=== PATIENT | male | born 1970 | race Caucasian/White ===

== ENCOUNTER 2022-12-18 23:04 | Observation (INO) | payer BC ==
[2022-12-18] MEDS ORDERED: GlucaGen 1 MG IV ONE (23:36)
--- NOTE | 2022-12-18 23:41 | ERPHSYRPT ---
- History of Present Illness Time Seen by Provider: 12/18/22 23:39 Source: patient Exam Limitations: no limitations Patient Subjective Stated Complaint: pt states while eating steak he began having uncomfortable feeling in his throat and is not able to keep anything down after swallowing Triage Nursing Assessment: pt alert and oriented, answers questions approp. pt ambulatory with steady gait noted. respirations nonlabored. pt restless in room, sitting on side of bed, occasional vomiting with small amount of blood. Physician History: Patient is a 52-year-old male presents to our ED for evaluation of food bolus in esophagus. Patient was eating steak when symptoms occurred. Patient has had this issue in the past however he passed it at home. Patient has been trying to vomit the bolus of food up for the past 2 hours. It is not passing through. No trauma. No fever. No chest pain or shortness of breath. No nausea vomiting or diaphoresis. Symptoms are mild to moderate in intensity. No specific worsening or improving factors. Patient voices no other complaints or concerns at this time. Portions of this note were created with voice recognition technology. There may be grammatical, spelling, punctuation or sound alike errors Timing/Duration: today Severity: moderate Modifying Factors: Improves With: nothing Associated Symptoms: denies symptoms Allergies/Adverse Reactions: Penicillins Allergy (Unknown, Verified 12/18/22 23:35) Hx Tetanus, Diphtheria Vaccination/Date Given: No Hx Influenza Vaccination/Date Given: No Hx Pneumococcal Vaccination/Date Given: No Immunizations Up to Date: No Travel Risk - International Travel Have you traveled outside of the country in past 3 weeks: No - Coronavirus Screening Are you exhibiting any of the following symptoms?: No Close contact with a COVID-19 positive Pt in past 14-21 Days: No - Vaccine Status Have you recieved a Covid-19 vaccination: No - Review of Systems Constitutional: No Symptoms, No Fever, No Chills Eyes: No Symptoms Ears, Nose, & Throat: No Symptoms Respiratory: No Symptoms, No Cough, No Dyspnea Cardiac: No Symptoms, No Chest Pain, No Edema, No Syncope Abdominal/Gastrointestinal: No Symptoms, No Abdominal Pain, No Nausea, No Vomiting, No Diarrhea Genitourinary Symptoms: No Symptoms, No Dysuria Musculoskeletal: No Symptoms, No Back Pain, No Neck Pain Skin: No Symptoms, No Rash Neurological: No Symptoms, No Dizziness, No Focal Weakness, No Sensory Changes Psychological: No Symptoms, Hallucinations Endocrine: No Symptoms Hematologic/Lymphatic: No Symptoms Immunological/Allergic: No Symptoms All Other Systems: Reviewed and Negative - Past Medical History Pertinent Past Medical History: Yes Cardiac History: Coronary Artery Disease, Myocardial Infarction ([place]) - Past Surgical History Past Surgical History: Yes Cardiac: Cardiac Stent Gastrointestinal: Appendectomy Other Surgical History: 1 cardiac stent - Social History Smoking Status: Former smoker Exposure to second hand smoke: No Drug Use: none Patient Lives Alone: No - Nursing Vital Signs Nursing Vital Signs: Initial Vital Signs Pulse Rate 106 H 12/18/22 23:15 Respiratory Rate 18 12/18/22 23:15 Blood Pressure 118/85 12/18/22 23:15 O2 Sat by Pulse Oximetry 97 12/18/22 23:15 Pain Scale Pain Intensity 8 - Physical Exam General Appearance: no apparent distress, alert Eye Exam: PERRL/EOMI, eyes nml inspection Ears, Nose, Throat Exam: normal ENT inspection, TMs normal, pharynx normal, moist mucous membranes Neck Exam: normal inspection, non-tender, supple, full range of motion Respiratory Exam: normal breath sounds, lungs clear, No respiratory distress Cardiovascular Exam: regular rate/rhythm, normal heart sounds, normal peripheral pulses Gastrointestinal/Abdomen Exam: soft, normal bowel sounds, No tenderness, No mass Back Exam: normal inspection, normal range of motion, No CVA tenderness, No vertebral tenderness Extremity Exam: normal inspection, normal range of motion, pelvis stable Neurologic Exam: alert, oriented x 3, cooperative, normal mood/affect, nml cerebellar function, nml station & gait, sensation nml, No motor deficits Skin Exam: normal color, warm, dry, No rash Lymphatic Exam: No adenopathy SpO2 Interpretation: normal SpO2: 97 O2 Delivery: Room Air - Course Nursing assessment & vital signs reviewed: Yes - CT Exams Chest CT Interpretation: Tele-radiologist Report (Food bolus impaction, left lower lobe lung nodule requiring CT follow-up in 12 months, right renal cyst) Ordered Tests: Active Orders 24 hr Category Date Time Status CHEST WITHOUT CONTRAST [CT] Stat Exams 12/19/22 02:22 Completed CBC W DIFF Stat Lab 12/19/22 01:46 Completed CMP Stat Lab 12/19/22 01:46 Completed TROPONIN Q4H Lab 12/19/22 01:58 Completed TROPONIN Q4H Lab 12/19/22 05:45 Ordered TROPONIN Q4H Lab 12/19/22 09:45 Ordered Transfer Order Routine Transfer 12/19/22 Ordered Medication Summary Generic Name Dose Route Start Last Admin Trade Name Teofilo PRN Reason Stop Dose Admin Sodium Chloride 1,000 mls @ 100 mls/hr 12/19/22 01:15 12/19/22 01:23 Sodium Chloride 0.9% 1000 Ml IV 01/18/23 01:14 100 mls/hr .Q10H ROCÍO Administration Discontinued Medications Generic Name Dose Route Start Last Admin Trade Name Teofilo PRN Reason Stop Dose Admin Glucagon 1 mg 12/18/22 23:36 12/19/22 00:10 Glucagon 1 Mg/Vial Vial IV 12/18/22 23:37 1 mg STAT ONE Administration Glucagon Confirm 12/19/22 00:07 Glucagon 1 Mg/Vial Vial Administered 12/19/22 00:08 Dose 1 mg .ROUTE .STK-MED ONE Hydromorphone HCl 0.5 mg 12/19/22 02:26 12/19/22 02:34 Hydromorphone 1 Mg/1ml Inj IV 12/19/22 02:27 0.5 mg STAT ONE Administration Hydromorphone HCl Confirm 12/19/22 02:32 Hydromorphone 1 Mg/1ml Inj Administered 12/19/22 02:33 Dose 1 mg .ROUTE .STK-MED ONE Morphine Sulfate 2 mg 12/19/22 01:38 12/19/22 01:46 Morphine Sulfate 2 Mg/Ml Inj IV 12/19/22 01:39 2 mg STAT ONE Administration Morphine Sulfate Confirm 12/19/22 01:43 Morphine Sulfate 2 Mg/Ml Inj Administered 12/19/22 01:44 Dose 2 mg .ROUTE .STK-MED ONE Ondansetron HCl 4 mg 12/19/22 01:15 12/19/22 01:23 Ondansetron Hcl 4 Mg/2 Ml Vial IV 12/19/22 01:16 4 mg STAT ONE Administration Ondansetron HCl Confirm 12/19/22 01:20 Ondansetron Hcl 4 Mg/2 Ml Vial Administered 12/19/22 01:21 Dose 4 mg .ROUTE .STK-MED ONE Sterile Water Confirm 12/19/22 00:08 Water For Injection,Sterile 10 Ml Vial Administered 12/19/22 00:09 Dose 10 ml IJ .STK-MED ONE Lab/Rad Data: Laboratory Result Diagrams 12/19/22 01:46 12/19/22 01:46 Laboratory Results 12/19/22 12/19/22 12/19/22 Range/Units 01:58 01:46 01:46 WBC 17.9 H (4.0-10.5) x10^3/uL RBC 4.83 (4.1-5.6) x10^6/uL Hgb 15.0 (12.5-18.0) g/dL Hct 45.4 (42-50) % MCV 94.0 (78-100) fL MCH 31.1 (26-32) pg MCHC 33.0 (32-36) g/dL RDW 12.4 (11.5-14.0) % Plt Count 258 (150-450) x10^3/uL MPV 9.4 (7.5-11.0) fL Gran % 85.5 H (36.0-66.0) % Immature Gran % (Auto) 0.6 H (0.00-0.4) % Nucleat RBC Rel Count 0.0 (0.00-0.1) % Eos # (Auto) 0.21 (0-0.5) x10^3/uL Immature Gran # (Auto) 0.11 H (0.00-0.03) x10^3u/L Absolute Lymphs (auto) 1.30 (1.0-4.6) x10^3/uL Absolute Monos (auto) 0.87 (0.0-1.3) x10^3/uL Absolute Nucleated RBC 0.00 (0.00-0.01) x10^3u/L Lymphocytes % 7.3 L (24.0-44.0) % Monocytes % 4.9 (0.0-12.0) % Eosinophils % 1.2 (0.00-5.0) % Basophils % 0.5 (0.0-0.4) % Absolute Granulocytes 15.33 H (1.4-6.9) x10^3/uL Basophils # 0.09 (0-0.4) x10^3/uL Sodium 139 (137-145) mmol/L Potassium 4.2 (3.5-5.1) mmol/L Chloride 104 (98-107) mmol/L Carbon Dioxide 22 (22-30) mmol/L Anion Gap 18.1 H (5-15) MEQ/L BUN 14 (9-20) mg/dL Creatinine 1.05 (0.66-1.25) mg/dL Estimated GFR > 60.0 ML/MIN Glucose 111 H (74-106) mg/dL Calcium 9.1 (8.4-10.2) mg/dL Total Bilirubin 0.90 (0.2-1.3) mg/dL AST 39 (17-59) U/L ALT 40 (0-50) U/L Alkaline Phosphatase 72 (38-126) U/L Troponin I < 0.012 (0.000-0.034) ng/mL Serum Total Protein 7.9 (6.3-8.2) g/dL Albumin 4.7 (3.5-5.0) g/dL - Progress Progress: unchanged Progress Note: 12/19/22 01:[address] Joaquín French at 1:[address] French states he can scope our patient at approximately 9 AM. Patient will be admitted to hospitalist. IV fluids initiated. Zofran administered. Basic labs ordered. 12/19/22 04:[address] Bentley who excepts admission to observation. Family informed of the left lower lobe lung nodule. They understand the patient will require follow-up CT scan at 12 months to further evaluate the lung nodule. Patient is a [age]-year-old male presents to our ED for evaluation of food bolus impaction. While in our ED patient began to experience nausea and dry heaving. Patient started to dry heave blood. Patient currently on a blood thinner. A CT scan was ordered to rule out perforation. CT scan negative for perforation. But it does confirm a food bolus impaction. Incidental lung nodule observed. This lung nodule will require follow-up in 12 months. This was conveyed both the patient and who is at the bedside. This was also conveyed to the admitting hospitalist. Patient also has a right renal cyst. A leukocytosis of 17,000 was observed. It is unclear whether or not this is demargination. But in the face of bleeding presumably from the esophagus we will give patient a dose of prophylactic antibiotic. Physical exam shows a 52-year-old male uncomfortable complaining of a food bolus. Physical exam otherwise negative. Laboratory test include CBC CMP troponin. Troponin negative. Patient will be admitted for upper GI and retrieval of food bolus this morning at [address] Prieto is excepting hospitalist Dr. Joaquín French will be on consultation. Complexity of problem addressed is moderate, acute complicated. No critical care time Complexity of data reviewed and analyzed is extensive. Test ordered reviewed and analyzed. Results discussed both with general surgeon Dr. French and hospitalist. Findings on lab work-up as well as imaging study correlated clinically. Patient's complaint is due to a food bolus however this is complicated by mild hematemesis. Risk of complication and or risk morbidity/mortality patient management is high. Patient received IV controlled medication for pain control requiring monitoring. Patient will require hospitalization for further evaluation and treatment. Vital stable. Plan of care discussed with patient. He agrees to admission to [facility] for further evaluation and treatment. Patient agrees to follow-up with his primary care physician for a repeat CT chest to further evaluate the progression of the observed lung nodule. Portions of this note were created with voice recognition technology. There may be grammatical, spelling, punctuation or sound alike errors 12/19/22 04:19 12/19/22 04:20 Counseled pt/family regarding: diagnosis, need for follow-up - Departure Departure Disposition: Home Clinical Impression: Food bolus impaction, Nodule of left lung, Renal cyst, right Condition: Stable Critical Care Time: No Referrals: SETH JONES Jr., MD [Primary Care Provider] - Follow up/PCP as directed
[2022-12-19] MEDS ORDERED: GlucaGen 1 MG ONE (00:07)
[2022-12-19] MEDS ORDERED: Sterile H2O 10 ml IJ ONE (00:08)
[2022-12-19] MEDS ORDERED: Zofran 4 MG/2 ML VIAL IV ONE ×2 (01:15→04:29)
[2022-12-19] MEDS ORDERED: Sodium Chloride 0.9% 1000 ML 1,000 ML IV SCH ×2 (01:15→06:12)
[2022-12-19] MEDS ORDERED: Zofran 4 MG/2 ML VIAL ONE (01:20)
[2022-12-19] MEDS ORDERED: Sodium Chloride 0.9% 1000 ML 1,000 ML ONE (01:20)
[2022-12-19] MEDS ORDERED: MORPHINE SULFATE 2 MG INJ IV ONE (01:38)
[2022-12-19] MEDS ORDERED: MORPHINE SULFATE 2 MG INJ ONE (01:43)
[2022-12-19 01:51] LABS: Absolute Neutrophil Ct (ANC) 15.33 x10^3/uL (1.4-6.9); BASOPHIL % 0.5 % (0.0-0.4); Basophil (Absolute #) 0.09 x10^3/uL (0-0.4); Eosinophil % 1.2 % (0.00-5.0); Eosinophil (Absolute #) 0.21 x10^3/uL (0-0.5); Hematocrit 45.4 % (42-50); IMMATURE GRAN # 0.11 x10^3u/L (0.00-0.03); IMMATURE GRAN % 0.6 % (0.00-0.4); Lymphocytes % 7.3 % (24.0-44.0); Mean Corpuscular Hemoglobin 31.1 pg (26-32); Mean Platelet Volume 9.4 fL (7.5-11.0); Monocyte (Absolute #) 0.87 x10^3/uL (0.0-1.3); Monocytes % 4.9 % (0.0-12.0); Neutrophil % 85.5 % (36.0-66.0); Platelet Count 258 x10^3/uL (150-450); Red Blood Count 4.83 x10^6/uL (4.1-5.6); Red Cell Distribution Width 12.4 % (11.5-14.0); White Blood Count 17.9 x10^3/uL (4.0-10.5)
[2022-12-19 02:06] LABS: ALBUMIN 4.7 g/dL (3.5-5.0); ALKALINE PHOSPHATASE 72 U/L (38-126); ANION GAP 18.1 MEQ/L (5-15); BLOOD UREA NITROGEN 14 mg/dL (9-20); CHLORIDE 104 mmol/L (98-107); Calcium 9.1 mg/dL (8.4-10.2); Carbon Dioxide 22 mmol/L (22-30); Creatinine 1 1.05 mg/dL (0.66-1.25); EST GLOMERULAR FILTRATION RATE > 60.0 ML/MIN; Glucose 111 mg/dL (74-106); Potassium 4.2 mmol/L (3.5-5.1); SGOT/AST 39 U/L (17-59); SGPT/ALT 40 U/L (0-50); SODIUM 139 mmol/L (137-145); Total Protein 7.9 g/dL (6.3-8.2)
[2022-12-19] MEDS ORDERED: Hydromorphone 1 mg/ml Injection IV ONE ×2 (02:26→04:28)
[2022-12-19] MEDS ORDERED: Hydromorphone 1 mg/ml Injection ONE (02:32)
--- NOTE | 2022-12-19 03:46 | XRAY ---
CLINICAL HISTORY:Bloody emesis; COMPARISON:None; TECHNIQUES:Axial sections of CT chest were obtained without administration of intravenous contrast. Reconstructed coronal and sagittal images were also acquired; FINDINGS: The esophagus is mildly dilated with an air-fluid level within it. No definite evidence of pneumomediastinum. There is a suggestion of food bolus impaction at the distal esophagus. There is apparent mild esophageal wall thickening at the distal esophagus. The wall measures approximately 9 mm in thickness. This may be secondary to under distention, however, the possibility of a lesion cannot be entirely excluded on this unenhanced CT. Further evaluation is advised. A nodule measuring approximately 5.2 mm is identified in the posterior segment of the left lower lobe. No consolidation, pleural effusion or pneumothorax. No significant hilar or axillary lymphadenopathy. Heart is normal in size. No pericardial effusion. No definite evidence of aneurysmal dilatation of the thoracic aorta. Thyroid gland appears unremarkable. No definite chest wall abnormality. Right renal cyst measuring approximately 1.2 x 0.8 cm. Visualized upper abdominal viscera appears grossly unremarkable. Degenerative changes in the visualized spine. IMPRESSION: Mildly dilated esophagus with an air-fluid level, there is a suggestion of food bolus impaction in the distal esophagus. No definite evidence of pneumomediastinum. Apparent mild esophageal wall thickening at the distal esophagus, may be secondary to under-distention, however, the possibility of a lesion cannot be entirely excluded from this unenhanced examination. Further evaluation is advised. Left lower lobe nodule measuring 5.2 mm. According to Fleischner Society guidelines, optional CT at 12 months is recommended based on the patient risk. Electronically Signed by: Mabel Jesus MD. (12/19/2022 02:38:24 GUEST RELATIONS MANAGER)
[2022-12-19] MEDS ORDERED: Levofloxacin 500MG/100ML D5W 500 MG/100 ML BAG IV STA (04:27)
[2022-12-19] MEDS ORDERED: FLAGYL 500 MG IVPB 500 MG/100 ML BAG IV STA (04:28)
--- NOTE | 2022-12-19 05:49 | PCM.HP ---
History of Present Illness - Chief Complaint Chief Complaint: Esophageal food bolus, Hemoptisis History of Present Illness: is a 52 year old male. 52 yo wm with hx of CAD admitted for meat impaction. Pt has had issues with dysphagia in past. He has never had food getting stuck. He has been retching and some mild hemoptysis noted. CT showed clear lung mistry and food stuck in esophagus. Surgery to proceed with EGD this am. - Review of Systems Constitutional: No Symptoms Eyes: No Symptoms Ears, Nose, & Throat: No Symptoms Respiratory: No Symptoms Cardiac: No Symptoms Abdominal/Gastrointestinal: Dysphagia Genitourinary Symptoms: No Symptoms Musculoskeletal: No Symptoms Skin: No Symptoms Neurological: No Symptoms Psychological: No Symptoms Endocrine: No Symptoms Hematologic/Lymphatic: No Symptoms Immunological/Allergic: No Symptoms Medications & Allergies Home Medications: Home Medication List Aspirin EC 81 mg [Ecotrin 81 mg] 81 mg PO DAILY 12/19/22 [History Confirmed 12/19/22] Atorvastatin Calcium [Lipitor] 80 mg PO HS 12/19/22 [History Confirmed 12/19/22] Ezetimibe 10 mg [Zetia 10 MG] 10 mg PO HS 12/19/22 [History Confirmed 12/19/22] Metoprolol Succinate 25 mg Xl* [Toprol-Xl 25MG Tablets] 6.25 mg PO UD 12/19/22 [History Confirmed 12/19/22] Ticagrelor [Brilinta] 60 mg PO BID 12/19/22 [History Confirmed 12/19/22] lisinopriL [Zestril] 2.5 mg PO UD 12/19/22 [History Confirmed 12/19/22] Allergies/Adverse Reactions: Allergies Allergy/AdvReac Type Severity Reaction Status Date / Time Penicillins Allergy Unknown Verified 12/18/22 23:35 - Past Medical History Past Medical History: Yes Neurological History: No Pertinent History ENT History: No Pertinent History Cardiac History: Coronary Artery Disease, High Cholesterol, Hypertension, Myocardial Infarction ([place]) Respiratory History: No Pertinent History Endocrine Medical History: No Pertinent History Musculoskelatal History: Fractures GI Medical History: No Pertinent History History: No Pertinent History Pyscho-Social History: No Pertinent History Male Reproductive Disorders: No Pertinent History - Past Surgical History Past Surgical History: Yes Neuro Surgical History: No Pertinent History Cardiac History: No Pertinent History Respiratory Surgery: No Pertinent History GI Surgical History: Appendectomy Genitourinary Surgical Hx: No Pertinent History Musculskeletal Surgical Hx: No Pertinent History Male Surgical History: No Pertinent History Other Surgical History: 1 cardiac stent - Social History Smoking Status: Former smoker Exposure to second hand smoke: No Alcohol: Daily Drug Use: none - Physical Exam Vital Signs: Vital Signs - 24 hr Temp Pulse Resp BP BP Pulse Ox 12/19/22 05:09 97.5 F 113 H 18 123/68 97 12/19/22 04:29 97 12/19/22 04:00 96/66 91 L 12/19/22 03:00 103/62 93 L 12/19/22 01:30 110/80 96 12/19/22 01:00 118 H 20 116/77 97 12/19/22 00:30 124 H 16 120/85 94 L 12/19/22 00:17 99 H 16 138/71 95 12/19/22 00:16 96 12/19/22 00:06 114 H 18 103/75 94 L 12/18/22 23:15 106 H 18 118/85 97 General Appearance: no apparent distress Neurologic Exam: alert, oriented x 3 Eye Exam: PERRL/EOMI Ears, Nose, Throat Exam: normal ENT inspection Neck Exam: normal inspection Respiratory Exam: normal breath sounds Cardiovascular Exam: regular rate/rhythm, normal heart sounds Gastrointestinal/Abdomen Exam: soft, normal bowel sounds Extremity Exam: normal inspection, normal range of motion Skin Exam: normal color Results - Labs Lab/Micro Results: Lab Results-Last 24 Hours 12/19/22 12/19/22 12/19/22 Range/Units 01:46 01:46 01:58 WBC 17.9 H (4.0-10.5) x10^3/uL RBC 4.83 (4.1-5.6) x10^6/uL Hgb 15.0 (12.5-18.0) g/dL Hct 45.4 (42-50) % MCV 94.0 (78-100) fL MCH 31.1 (26-32) pg MCHC 33.0 (32-36) g/dL RDW 12.4 (11.5-14.0) % Plt Count 258 (150-450) x10^3/uL MPV 9.4 (7.5-11.0) fL Gran % 85.5 H (36.0-66.0) % Immature Gran % (Auto) 0.6 H (0.00-0.4) % Nucleat RBC Rel Count 0.0 (0.00-0.1) % Eos # (Auto) 0.21 (0-0.5) x10^3/uL Immature Gran # (Auto) 0.11 H (0.00-0.03) x10^3u/L Absolute Lymphs (auto) 1.30 (1.0-4.6) x10^3/uL Absolute Monos (auto) 0.87 (0.0-1.3) x10^3/uL Absolute Nucleated RBC 0.00 (0.00-0.01) x10^3u/L Lymphocytes % 7.3 L (24.0-44.0) % Monocytes % 4.9 (0.0-12.0) % Eosinophils % 1.2 (0.00-5.0) % Basophils % 0.5 (0.0-0.4) % Absolute Granulocytes 15.33 H (1.4-6.9) x10^3/uL Basophils # 0.09 (0-0.4) x10^3/uL Sodium 139 (137-145) mmol/L Potassium 4.2 (3.5-5.1) mmol/L Chloride 104 (98-107) mmol/L Carbon Dioxide 22 (22-30) mmol/L Anion Gap 18.1 H (5-15) MEQ/L BUN 14 (9-20) mg/dL Creatinine 1.05 (0.66-1.25) mg/dL Estimated GFR > 60.0 ML/MIN Glucose 111 H (74-106) mg/dL Calcium 9.1 (8.4-10.2) mg/dL Total Bilirubin 0.90 (0.2-1.3) mg/dL AST 39 (17-59) U/L ALT 40 (0-50) U/L Alkaline Phosphatase 72 (38-126) U/L Troponin I < 0.012 (0.000-0.034) ng/mL Serum Total Protein 7.9 (6.3-8.2) g/dL Albumin 4.7 (3.5-5.0) g/dL 07/03/23 Range/Units 04:27 WBC (4.0-10.5) x10^3/uL RBC (4.1-5.6) x10^6/uL Hgb (12.5-18.0) g/dL Hct (42-50) % MCV (78-100) fL MCH (26-32) pg MCHC (32-36) g/dL RDW (11.5-14.0) % Plt Count (150-450) x10^3/uL MPV (7.5-11.0) fL Gran % (36.0-66.0) % Immature Gran % (Auto) (0.00-0.4) % Nucleat RBC Rel Count (0.00-0.1) % Eos # (Auto) (0-0.5) x10^3/uL Immature Gran # (Auto) (0.00-0.03) x10^3u/L Absolute Lymphs (auto) (1.0-4.6) x10^3/uL Absolute Monos (auto) (0.0-1.3) x10^3/uL Absolute Nucleated RBC (0.00-0.01) x10^3u/L Lymphocytes % (24.0-44.0) % Monocytes % (0.0-12.0) % Eosinophils % (0.00-5.0) % Basophils % (0.0-0.4) % Absolute Granulocytes (1.4-6.9) x10^3/uL Basophils # (0-0.4) x10^3/uL Sodium (137-145) mmol/L Potassium (3.5-5.1) mmol/L Chloride (98-107) mmol/L Carbon Dioxide (22-30) mmol/L Anion Gap (5-15) MEQ/L BUN (9-20) mg/dL Creatinine (0.66-1.25) mg/dL Estimated GFR ML/MIN Glucose (74-106) mg/dL Calcium (8.4-10.2) mg/dL Total Bilirubin (0.2-1.3) mg/dL AST (17-59) U/L ALT (0-50) U/L Alkaline Phosphatase (38-126) U/L Troponin I < 0.012 (0.000-0.034) ng/mL Serum Total Protein (6.3-8.2) g/dL Albumin (3.5-5.0) g/dL - Radiology Impressions Radiology Exams & Impressions: Radiology Procedures Category Date Time Status CHEST WITHOUT CONTRAST [CT] Stat Exams 12/19/22 02:22 Completed Assessment/Plan (1) Dysphagia Current Visit: Yes Status: Acute Assessment & Plan: 1. Meat impaction/Dysphagia: Surgery to proceed with EGD later today. 2. CAD: Continue DAPT after procedure 3. Hematemesis: 2/2 wretching and DAPT. Suspect MWT. Apparently 600 cc in total. Check H/H q6. PPI Q12. 4. Pulmonary Nodule : 5 mm. 12 months f/u per rads 5. FEN: NPO 6. PX: Mobile Don Hathaway MD entire encounter done via telemedicine Code(s): R13.10 - DYSPHAGIA, UNSPECIFIED Telemedicine Encounter - Telemedicine Encounter Telemedicine Encounter: The entirety of this encounter was performed via Telemedicine"
[2022-12-19] MEDS ORDERED: Hydromorphone 1 mg/ml Injection IV PRN (06:12)
[2022-12-19 06:41] LABS: Absolute Neutrophil Ct (ANC) 12.43 x10^3/uL (1.4-6.9); BASOPHIL % 0.4 % (0.0-0.4); Basophil (Absolute #) 0.06 x10^3/uL (0-0.4); Eosinophil % 0.4 % (0.00-5.0); Eosinophil (Absolute #) 0.05 x10^3/uL (0-0.5); Hematocrit 40.6 % (42-50); Hemoglobin 13.3 g/dL (12.5-18.0); IMMATURE GRAN # 0.06 x10^3u/L (0.00-0.03); IMMATURE GRAN % 0.4 % (0.00-0.4); Lymphocyte (Absolute #) 0.91 x10^3/uL (1.0-4.6); Lymphocytes % 6.4 % (24.0-44.0); Mean Cell Volume 94.9 fL (78-100); Mean Corpuscular Hemoglobin 31.1 pg (26-32); Mean Corpuscular Hgb Concent. 32.8 g/dL (32-36); Mean Platelet Volume 9.4 fL (7.5-11.0); Monocyte (Absolute #) 0.66 x10^3/uL (0.0-1.3); Monocytes % 4.7 % (0.0-12.0); Neutrophil % 87.7 % (36.0-66.0); Platelet Count 233 x10^3/uL (150-450); Red Blood Count 4.28 x10^6/uL (4.1-5.6); Red Cell Distribution Width 12.5 % (11.5-14.0); White Blood Count 14.2 x10^3/uL (4.0-10.5)
[2022-12-19] MEDS ORDERED: Zofran 4 MG/2 ML VIAL IV PRN (09:17)
[2022-12-19] MEDS ORDERED: PROTONIX 40 MG IV IV SCH ×2 (10:00)
[2022-12-19 11:36] LABS: Absolute Neutrophil Ct (ANC) 10.16 x10^3/uL (1.4-6.9); BASOPHIL % 0.3 % (0.0-0.4); Basophil (Absolute #) 0.03 x10^3/uL (0-0.4); Eosinophil % 0.2 % (0.00-5.0); Eosinophil (Absolute #) 0.02 x10^3/uL (0-0.5); Hematocrit 39.7 % (42-50); Hemoglobin 12.9 g/dL (12.5-18.0); IMMATURE GRAN # 0.06 x10^3u/L (0.00-0.03); IMMATURE GRAN % 0.5 % (0.00-0.4); Lymphocyte (Absolute #) 0.74 x10^3/uL (1.0-4.6); Lymphocytes % 6.3 % (24.0-44.0); Mean Cell Volume 95.4 fL (78-100); Mean Corpuscular Hgb Concent. 32.5 g/dL (32-36); Mean Platelet Volume 9.6 fL (7.5-11.0); Neutrophil % 86.7 % (36.0-66.0); Platelet Count 212 x10^3/uL (150-450); Red Blood Count 4.16 x10^6/uL (4.1-5.6); Red Cell Distribution Width 12.8 % (11.5-14.0); White Blood Count 11.7 x10^3/uL (4.0-10.5)
[2022-12-19 12:03] LABS: BLOOD UREA NITROGEN 19 mg/dL (9-20); CHLORIDE 105 mmol/L (98-107); Calcium 8.5 mg/dL (8.4-10.2); Carbon Dioxide 23 mmol/L (22-30); Creatinine 1 1.09 mg/dL (0.66-1.25); EST GLOMERULAR FILTRATION RATE > 60.0 ML/MIN; Glucose 125 mg/dL (74-106); Potassium 4.3 mmol/L (3.5-5.1); SODIUM 139 mmol/L (137-145); TROPONIN < 0.012 ng/mL (0.000-0.034)
--- NOTE | 2022-12-19 12:32 | CONS ---
CONSULT DATE: 12/19/2022 HISTORY: I was just notified that Dr. Joaquín French had been called on this patient at 1:00 a.m. and it is about 11:15 or so. I just saw the patient. A 52-year-old gentleman who has heart disease and underwent stents. He has had it for three years. He basically was eating steak and felt it get it stuck. He threw up a little bit of blood. A little bit of dysphagia in the past. He denied any recent upper endoscopy. PAST MEDICAL HISTORY: Hyperlipidemia. Heart disease. Hypercholesterolemia. Hypertension. He had myocardial infarction in the past. PAST SURGICAL HISTORY: Appendectomy. Coronary stents. HOME MEDICATIONS: Aspirin, atorvastatin for hyperlipidemia. He had been on Brilinta for history of coronary stents in the past. Ezetimibe, metoprolol, lisinopril. ALLERGIES: PENICILLIN. FAMILY HISTORY: Negative in regards to this problem. SOCIAL HISTORY: Former smoker. REVIEW OF SYSTEMS: He has a little bit of epigastric pain. He was admitted to medical service for question of retained food bolus. Dr. Joaquín French was consulted and I was just notified of the patient. Fourteen systems reviewed pertinent for as noted above. Pertinent that he threw up a little bit of blood which is surprising on the Brilinta. He had a little bit mild epigastric pain. CT chest no evidence of pneumomediastinum at this time, had some wall thickening in distal esophagus. PHYSICAL EXAMINATION: He is afebrile Vital signs stable. GENERAL: No acute distress. HEENT: Sclera nonicteric. EOMI. Oral mucous membranes moist. NECK: No JVD. CHEST: Equal excursion, nonlabored breathing. CVS: Regular rate and rhythm. ABDOMEN: Soft, minimal tenderness epigastrium. No peritoneal signs. EXTREMITIES: No cyanosis. NEURO: Alert, moving extremities grossly symmetrically. PSYCH: Appropriate mood and affect. SKIN: Dry. IMPRESSION: Question of retained food bolus. Dr. French was called last night. They asked that I see this patient. I feel he is in need of an EGD possible food bolus dislodgement or removal, possible biopsy. Risk of bleeding or infection, risk of bowel injury or perforation possibly requiring further procedure, possibility of whatever has been stuck in there has already damaged his esophagus. He could have delayed perforation that could require transfer for stent placement or other procedure. General risk of anesthesia, deep vein thrombosis, pulmonary embolism or pneumonia but not limited to, possible need for further procedures down the road. Will proceed with EGD, possible dislodgement or removal of food bolus, possible biopsy when OR time available.
[2022-12-19] MEDS ORDERED: DIPRIVAN 200 MG/20 ML IV ONE (12:44)
[2022-12-19] MEDS ORDERED: Versed 2 MG/2 ML Injection ONE (12:44)
[2022-12-19] MEDS ORDERED: SUBLIMAZE 100 MCG/2 ML ONE ×2 (12:47→13:18)
[2022-12-19] MEDS ORDERED: Lactated Ringers 1,000 ML IV ONE (13:11)
--- NOTE | 2022-12-19 14:48 | OP ---
SURGERY DATE/TIME: 12/19/2022 1310 PREOPERATIVE DIAGNOSES: 1) Retained food bolus. 2) History of hematemesis. 3) History of coronary stents on Brilinta and aspirin. POSTOPERATIVE DIAGNOSES: 1) Retained steak distal esophagus along with underlying what seemed to be mucosal tear question distal posterior esophagus with the gastroesophageal junction with some adherent clot. Again, this is present prior to the procedure. No current active bleeding. 2) Minimal to mild gastritis. PROCEDURES: 1) EGD with cold biopsy to antrum. 2) Combination of removal of retained food bolus as well as dislodgement down into the stomach. SURGEON: Dr. Ant Richardson. ANESTHESIA: General. ESTIMATED BLOOD LOSS: Minimal. INDICATIONS: As noted above. Risks and benefits explained in detail and not limited to and consent was obtained. DESCRIPTION OF PROCEDURE AND FINDINGS: The patient is taken to the endoscopy room. General anesthesia induced. After official time out and no disagreement with planned procedure, video gastroscope passed down into the esophagus. There was some fluid and clot in the esophagus. There was a portion of steak meat in the distal esophagus. Part of this is retrieved up out of the oropharynx. The rest was able to be gently pushed down into the stomach. It took just a few moments. It should be noted that he obviously had what seemed to be a mucosal tear possibly posterior distal esophagus just above the gastroesophageal junction with some adherent clot. Some gentle wash and irrigation and this began to simply fall off. It was felt that this does not warranted to remove this. There did not appear to be any obvious full thickness issues on endoscopic view. The scope is then passed down into the third portion of the duodenum. First, second and third portion of duodenum grossly unremarkable. Back in the stomach he has a little bit of gastric erythema. Cold biopsy taken to evaluate for Helicobacter pylori. More proximal fluid in the stomach suctioned clear. The stomach was decompressed. The scope carefully withdrawn. The area with adherent clot still remained in place. No signs of any active bleeding. The scope is withdrawn. The patient tolerated the procedure as well as possible. Findings discussed with the family out in the waiting area including the fact that he should stay on liquids for four or five days and then advance to other types of liquid up to full liquid diet for the next five days or so. The family understood should he have recurrent bleeding from this or develop some delayed perforation, he will need to be transferred to tertiary center.
[2022-12-19 15:06] VITALS: BP 125/63; PULSE 92; O2SAT 95
== END 2022-12-19 16:15 | disposition home or self-care (01) ==
LOC: ED 23:04 → MED SURG 12-19 04:30 → ED 12-19 04:37
PROVIDERS: ADMIT Internal Medicine Critical Care Medicine; ATTEND Surgery
DX: R13.10 Dysphagia, unspecified (principal); T18.128A Food in esophagus causing other injury, initial encounter; K92.0 Hematemesis; K29.70 Gastritis, unspecified, without bleeding; I25.10 Atherosclerotic heart disease of native coronary artery without angina pectoris; I10 Essential (primary) hypertension; E78.5 Hyperlipidemia, unspecified; Z79.01 Long term (current) use of anticoagulants; Z79.899 Other long term (current) drug therapy; Z20.828 Contact with and (suspected) exposure to other viral communicable diseases
CPT/HCPCS: 36415; 71250; 80048; 80053; 84484; 85025; 94762; 96374; 96375; 99285; G0378; J1170; J1610; J1956; J2250; J2270; J2405; J2704; J3010; Q3014